=== PATIENT | male | born 1970 | race Caucasian/White ===

== ENCOUNTER 2020-08-01 22:47 | Inpatient (IN) | payer BC ==
[2020-08-01] MEDS ORDERED: ONDANSETRON 4 MG/2 ML VIAL IVP STA (23:14)
[2020-08-01] MEDS ORDERED: HYDROmorphone 0.5 MG/0.5 ML SYRINGE IVP STA (23:14)
[2020-08-01] MEDS ORDERED: SODIUM CHLORIDE 0.9% 1,000 ML IV STA (23:14)
[2020-08-01 23:46] LABS: Basophils # (A) 0.1 k/uL (0-0.2); Basophils % (A) 1 %; Eosinophils # (A) 0.1 k/uL (0-0.7); Eosinophils % (A) 1 %; HGB 17.7 gm/dL (13.0-17.5); Lymphocytes # (A) 1.3 k/uL (1.0-4.8); Lymphocytes % (A) 14 %; MCH 29.3 pg (25.0-35.0); MCHC 32.8 g/dL (31.0-37.0); MCV 89.4 fL (80.0-100.0); Mean Platelet Volume 7.4; Monocytes # (A) 0.4 k/uL (0-1.0); Monocytes % (A) 5 %; Neutrophils % (A) 78 %; Platelet Count 188 k/uL (150-450); RBC 6.04 m/uL (4.30-5.90); RDW 13.5 % (11.5-15.5)
[2020-08-01 23:53] LABS: ALT 34 U/L (4-49); AST 44 U/L (17-59); African American GFR (CKD) >90 (>60 ml/min/1.73 sqM); Alkaline Phosphatase 66 U/L (38-126); Amylase 100 U/L (30-110); Anion Gap 9 mmol/L; Blood Urea Nitrogen 24 mg/dL (9-20); Calcium 9.8 mg/dL (8.4-10.2); Carbon Dioxide 29 mmol/L (22-30); Chloride 99 mmol/L (98-107); Glucose 139 mg/dL (74-99); Non-African American GFR(CKD) 79 (>60 ml/min/1.73 sqM); Potassium 4.2 mmol/L (3.5-5.1); Sodium 137 mmol/L (137-145); Total Bilirubin 1.2 mg/dL (0.2-1.3)
[2020-08-02] MEDS ORDERED: HYDROmorphone 0.5 MG/0.5 ML SYRINGE IVP STA (00:02)
[2020-08-02] MEDS ORDERED: FAMOTIDINE 20 MG/2 ML VIAL IV STA (00:09)
--- NOTE | 2020-08-02 00:11 | CT ---
EXAMINATION TYPE: CT ChestAbdPelvis w con DATE OF EXAM: 08/01/2020 COMPARISON: None HISTORY: pain CT DLP: 1273.9 mGycm Automated exposure control for dose reduction was used. CONTRAST: Performed with IV Contrast, patient injected with 100 mL of Isovue 300. The lungs are clear of infiltrate. There is no evidence of a pulmonary mass. Heart appears enlarged. There is no pericardial effusion. There is no mediastinal adenopathy. There are no hilar masses. Liver shows no focal defect. Gallbladder appears normal. The bile ducts are not dilated. Spleen is in tact. Stomach is intact. There is no pancreatic mass. There is no adrenal mass. Kidneys show satisfactory contrast opacification. There is no hydronephrosi s. There are left-sided renal parapelvic cysts. There are small right-sided renal parapelvic cysts. D elayed images show normal renal excretion. Ureters are not dilated. Bladder distends smoothly. Prosta te measures 5.5 cm. There is no inguinal hernia. There is no free fluid in the pelvis. Appendix is po sterior and medial and appears normal. There is no mesenteric edema. There is no ascites or free air. Small bowel measures up to 2.5 cm with in normal limits. I do not see evidence for bowel obstruction. There are diverticula of the descendin g colon and sigmoid colon. I do not see evidence of diverticulitis. The thoracic spine and lumbar spine are intact. There is no compression fracture. There is spurring i n the lumbar spine. The posterior elements are intact. Bony pelvis is intact. Hip joints appear vashti l. The sternum is intact. There is no evidence of a rib fracture. IMPRESSION: Negative CT scan of the chest. Mild cardiomegaly. Normal appendix. No bowel obstruction. Bilateral small renal parapelvic cysts. No acute abnormality w ithin the abdomen pelvis.
[2020-08-02] MEDS ORDERED: MAG HYDROX/AL HYDROX/SIMETH 30 ML, HYOSCYAMINE ELIXIR 10 ML, LIDOCAINE VISCOUS 2% 10 ML PO STA ×3 (00:13)
--- NOTE | 2020-08-02 00:13 | ED ---
General Adult HPI - General Chief complaint: Abdominal Pain Stated complaint: Abdominal Pain Time Seen by Provider: 08/01/20 23:01 Source: patient, RN notes reviewed Mode of arrival: ambulatory Limitations: no limitations - History of Present Illness Initial comments: 58-year-old male without any significant past medical history presents to the emergency room for a chief complaint of abdominal pain. Patient reports he has a generalized all over abdominal pain. States it is burning in nature. States it is also radiating to his back. He admits to nausea denies vomiting. Denies chest pain. Denies shortness of breath. Denies any history of fevers recently.Patient has no other complaints at this time including shortness of breath, chest pain, nausea or vomiting, headache, or visual changes. - Related Data Home Medications Medication Instructions Recorded Confirmed No Known Home Medications 08/01/20 08/01/20 Allergies Allergy/AdvReac Type Severity Reaction Status Date / Time No Known Allergies Allergy Verified 08/01/20 22:53 Review of Systems ROS Statement: Those systems with pertinent positive or pertinent negative responses have been documented in the HPI. ROS Other: All systems not noted in ROS Statement are negative. Past Medical History Past Medical History: No Reported History History of Any Multi-Drug Resistant Organisms: None Reported Past Surgical History: No Surgical Hx Reported Past Psychological History: No Psychological Hx Reported Smoking Status: Never smoker Past Alcohol Use History: None Reported Past Drug Use History: Marijuana General Exam Limitations: no limitations General appearance: alert, in no apparent distress Head exam: Present: atraumatic, normocephalic, normal inspection Eye exam: Present: normal appearance, PERRL, EOMI. Absent: scleral icterus, c onjunctival injection, periorbital swelling ENT exam: Present: normal exam, mucous membranes moist Neck exam: Present: normal inspection, full ROM. Absent: tenderness, meningismus, lymphadenopathy Respiratory exam: Present: normal lung sounds bilaterally. Absent: respiratory distress, wheezes, rales, rhonchi, stridor Cardiovascular Exam: Present: regular rate, normal rhythm, normal heart sounds. Absent: systolic murmur, diastolic murmur, rubs, gallop, clicks GI/Abdominal exam: Present: soft, tenderness (Generalized abdominal tenderness noted.), normal bowel sounds. Absent: distended, guarding, rebound, rigid Neurological exam: Present: alert Course Vital Signs 08/01/20 08/02/20 22:50 00:41 Temperature 97.9 F Pulse Rate 65 101 H Respiratory 20 19 Rate Blood Pressure 155/65 151/102 O2 Sat by Pulse 99 98 Oximetry EKG Findings - EKG Comments: EKG Findings:: Atrial fibrillation, ventricular rate 115, QRS shinto 108, QTC 478 Medical Decision Making - Medical Decision Making Vitals are stable. HPI and physical exam as documented. Patient is having severe abdominal pain that started 2 hours prior to arrival. On presentation patient was found to be in atrial fibrillation with a ventricular rate of 115. Patient has not had a history of this and is not anticoagulated. CBC did reveal mild hemoconcentration. CMP shows evidence of dehydration. Urinalysis is unremarkable. CT of the chest abdomen and pelvis was negative for acute proces s. There is mild cardiomegaly with bilateral small renal parapelvic cysts. No acute abnormality. At this time given new onset atrial fibrillation patient was given aspirin. We spoke with Dr. Hensley, does not recommend starting anticoagulation at this time.. He will be admitted for cardiology consultation and kept on engine monitor. - Lab Data Result diagrams: 08/01/20 23:34 08/01/20 23:34 Lab Results 08/01/20 08/01/20 08/01/20 Range/Units 23:34 23:34 23:34 WBC 9.0 (3.8-10.6) k/uL RBC 6.04 H (4.30-5.90) m/uL Hgb 17.7 H (13.0-17.5) gm/dL Hct 54.0 H (39.0-53.0) % MCV 89.4 (80.0-100.0) fL MCH 29.3 (25.0-35.0) pg MCHC 32.8 (31.0-37.0) g/dL RDW 13.5 (11.5-15.5) % Plt Count 188 (150-450) k/uL Neutrophils % 78 % Lymphocytes % 14 % Monocytes % 5 % Eosinophils % 1 % Basophils % 1 % Neutrophils # 7.0 (1.3-7.7) k/uL Lymphocytes # 1.3 (1.0-4.8) k/uL Monocytes # 0.4 (0-1.0) k/uL Eosinophils # 0.1 (0-0.7) k/uL Basophils # 0.1 (0-0.2) k/uL PT (9.0-12.0) sec INR (<1.2) APTT (22.0-30.0) sec Sodium 137 (137-145) mmol/L Potassium 4.2 (3.5-5.1) mmol/L Chloride 99 (98-107) mmol/L Carbon Dioxide 29 (22-30) mmol/L Anion Gap 9 mmol/L BUN 24 H (9-20) mg/dL Creatinine 1.09 (0.66-1.25) mg/dL Est GFR (CKD-EPI)AfAm >90 (>60 ml/min/1.73 sqM) Est GFR (CKD-EPI)NonAf 79 (>60 ml/min/1.73 sqM) Glucose 139 H (74-99) mg/dL Plasma Lactic Acid Ab (0.7-2.0) mmol/L Calcium 9.8 (8.4-10.2) mg/dL Total Bilirubin 1.2 (0.2-1.3) mg/dL AST 44 (17-59) U/L ALT 34 (4-49) U/L Alkaline Phosphatase 66 (38-126) U/L Troponin I (0.000-0.034) ng/mL Total Protein 8.0 (6.3-8.2) g/dL Albumin 5.0 (3.5-5.0) g/dL Amylase 100 (30-110) U/L Lipase 308 H (23-300) U/L Urine Color Light Yellow Urine Appearance Clear (Clear) Urine pH 5.5 (5.0-8.0) Ur Specific [place] >1.050 H (1.001-1.035) Urine Protein Negative (Negative) Urine Glucose (UA) Negative (Negative) Urine Ketones Negative (Negative) Urine Blood Negative (Negative) Urine Nitrite Negative (Negative) Urine Bilirubin Negative (Negative) Urine Urobilinogen <2.0 (<2.0) mg/dL Ur Leukocyte Esterase Negative (Negative) 08/01/20 08/01/20 08/01/20 Range/Units 23:34 23:34 23:55 WBC (3.8-10.6) k/uL RBC (4.30-5.90) m/uL Hgb (13.0-17.5) gm/dL Hct (39.0-53.0) % MCV (80.0-100.0) fL MCH (25.0-35.0) pg MCHC (31.0-37.0) g/dL RDW (11.5-15.5) % Plt Count (150-450) k/uL Neutrophils % % Lymphocytes % % Monocytes % % Eosinophils % % Basophils % % Neutrophils # (1.3-7.7) k/uL Lymphocytes # (1.0-4.8) k/uL Monocytes # (0-1.0) k/uL Eosinophils # (0-0.7) k/uL Basophils # (0-0.2) k/uL PT 10.7 (9.0-12.0) sec INR 1.0 (<1.2) APTT 25.0 (22.0-30.0) sec Sodium (137-145) mmol/L Potassium (3.5-5.1) mmol/L Chloride (98-107) mmol/L Carbon Dioxide (22-30) mmol/L Anion Gap mmol/L BUN (9-20) mg/dL Creatinine (0.66-1.25) mg/dL Est GFR (CKD-EPI)AfAm (>60 ml/min/1.73 sqM) Est GFR (CKD-EPI)NonAf (>60 ml/min/1.73 sqM) Glucose (74-99) mg/dL Plasma Lactic Acid Ab 1.3 (0.7-2.0) mmol/L Calcium (8.4-10.2) mg/dL Total Bilirubin (0.2-1.3) mg/dL AST (17-59) U/L ALT (4-49) U/L Alkaline Phosphatase (38-126) U/L Troponin I <0.012 (0.000-0.034) ng/mL Total Protein (6.3-8.2) g/dL Albumin (3.5-5.0) g/dL Amylase (30-110) U/L Lipase (23-300) U/L Urine Color Urine Appearance (Clear) Urine pH (5.0-8.0) Ur Specific [place] (1.001-1.035) Urine Protein (Negative) Urine Glucose (UA) (Negative) Urine Ketones (Negative) Urine Blood (Negative) Urine Nitrite (Negative) Urine Bilirubin (Negative) Urine Urobilinogen (<2.0) mg/dL Ur Leukocyte Esterase (Negative) Disposition Clinical Impression: Abdominal pain, New onset atrial fibrillation Disposition: ADMITTED IP TO THIS HOSP Condition: Fair Instructions (If sedation given, give patient instructions): Abdominal Pain (ED) Is patient prescribed a controlled substance at d/c from ED?: No Referrals: Nonstaff,Physician [REFERRING] - 1-2 days Time of Disposition: 00:52
[2020-08-02 00:24] LABS: Prothrombin Time 10.7 sec (9.0-12.0)
[2020-08-02 00:38] LABS: Appearance,Urine Clear (Clear); Bilirubin,Urine Negative (Negative); Blood,Urine Negative (Negative); Color,Urine Light Yellow; Glucose,Urine (UA) Negative (Negative); Ketones,Urine Negative (Negative); Leukocyte Esterase,Urine Negative (Negative); Nitrite,Urine Negative (Negative); PH, Urine 5.5 (5.0-8.0); Protein,Urine Negative (Negative); Specific Gravity,Urine >1.050 (1.001-1.035); Urobilinogen,Urine <2.0 mg/dL (<2.0)
[2020-08-02] MEDS ORDERED: ASPIRIN 325 MG TAB PO STA (01:02)
[2020-08-02] MEDS ORDERED: cloNIDine HCL 0.2 MG TAB PO STA (01:59)
[2020-08-02] MEDS ORDERED: KETOROLAC 15 MG/ML 1 ML VIAL IVP PRN (02:54)
[2020-08-02] MEDS ORDERED: SODIUM CHLORIDE 0.9% 1,000 ML IV STA (02:56)
--- NOTE | 2020-08-02 03:25 | P.HPIM ---
History of Present Illness H&P Date: 08/02/20 Chief Complaint: abd pain 50 year old male with history of fatty liver. patient comes in with sudden onset right upper quadrant abd pain that started after dinner, where he cooked fish at home, his son shared dinner and feels fine. patient denies any nausea or vomiting, denies any diarrhea or gi bleeding . he denies any trauma , recent travel, or unusual activity. he did mow the lawn today with his ride on neurology nurse. pain started suddenly after 8 pm , rates the pain as 8/10 sharp feels like muscle tearing worse with movement. denies any fever or chills denies any URI. in the ED, blood work over all unremarkable except for polycythemia. CT of the abd unremarkable EKG showed new onset afib/aflutter. patient does feel stressed out, but he is active person and walks alot, denies any limitation to physical activity. he has recently went through divorce. he does report feeling warm typically he would be wearing shorts until late in september, and he sweats a lot, he has recently lost 20 lbs, through dietary changes Review of Systems Pertinent positives as noted in HPI. All other systems were reviewed and are negative Past Medical History Past Medical History: No Reported History History of Any Multi-Drug Resistant Organisms: None Reported Past Surgical History: No Surgical Hx Reported Past Psychological History: No Psychological Hx Reported Smoking Status: Never smoker Past Alcohol Use History: None Reported Past Drug Use History: Marijuana - Past Family History family Family Medical History: No Reported History Medications and Allergies Home Medications Medication Instructions Recorded Confirmed Type No Known Home Medications 08/01/20 08/01/20 History Allergies Allergy/AdvReac Type Severity Reaction Status Date / Time No Known Allergies Allergy Verified 08/01/20 22:53 Physical Exam Vitals: Vital Signs Temp Pulse Resp BP Pulse Ox 08/02/20 02:45 109 H 20 147/100 99 08/02/20 02:00 102 H 20 151/122 99 08/02/20 01:25 93 18 154/114 99 08/02/20 00:41 101 H 19 151/102 98 08/01/20 22:50 97.9 F 65 20 155/65 99 Intake and Output 08/01/20 08/01/20 08/02/20 14:59 22:59 06:59 Other: Weight 95.254 kg Constitutional: No acute distress, conversant, pleasant Eyes: Anicteric sclerae, moist conjunctiva, no lid-lag Pupils equal round reactive to light ENMT: NC/AT Oropharynx clear, no erythema, exudates Neck: Supple, FROM, no masses, or JVD No carotid bruits No thyromegaly Lungs: Clear to auscultation Clear to percussion Normal respiratory effort, no accessory muscle use Cardiovascular: Heart irregular in rate and rhythm, No murmurs, gallops, or rubs No peripheral edema Abdominal: Soft tenderness to superficial palpation over the right upper quadrant of the abd. with voluntary guarding, no rebound or rigidity Abdomen moving with respiration Normoactive bowel sounds No hepatomegaly, No splenomegaly No palpable mass No abdominal wall hernia noted Skin: Normal temperature, tone, texture, turgor No induration No subcutaneous nodules No rash, lesions No ulcers Extremities: No digital cyanosis No clubbing Pedal pulses intact and symmetrical Radial pulses intact and symmetrical No calf tenderness Psychiatric: Alert and oriented to person, place and time Appropriate affect fair judgement Neuro Muscles Strength 5/5 in all 4 extremities Sensation to light touch grossly present throughout Cranial nerves II-XII grossly intact No focal sensory deficits Lymphatics: no palpable cervical or supraclavicular , or inguinal lymph nodes Results CBC & Chem 7: 08/01/20 23:34 08/01/20 23:34 Labs: Abnormal Lab Results - Last 24 Hours (Table) 08/01/20 08/01/20 08/01/20 Range/Units 23:34 23:34 23:34 RBC 6.04 H (4.30-5.90) m/uL Hgb 17.7 H (13.0-17.5) gm/dL Hct 54.0 H (39.0-53.0) % BUN 24 H (9-20) mg/dL Glucose 139 H (74-99) mg/dL Lipase 308 H (23-300) U/L Ur Specific [place] >1.050 H (1.001-1.035) Assessment and Plan Assessment: new onset afib/aflutter CHADSVAC zero start aspirin , no anticoagulation at this time, await cardio input cardiology consult rate control with low dose bb if needed, currently HR <100 echo cardiogram check TSH check K and Mg abd pain , seems musculoskeletal toradol PRN serial abd exam CT abd unremarkable Patient takes supplemental testosterone check D dimer , if elevated then rule out PE with CTA CODE STATUS:full code DVT prophylaxis: heparin sc tid Discussed with: Patient, ER Anticipated length of stay < than [address]: home A total of 65 minutes was spent on the care of this complex patient more than 50% of the time was spent in counseling and care coordination.
[2020-08-02] MEDS ORDERED: METOPROLOL TARTRATE 25 MG TAB PO STA (03:58)
[2020-08-02] MEDS: PANTOPRAZOLE 40 MG TABLET PO SCH ×3 (04:09→17:18)
[2020-08-02] MEDS ORDERED: polyethylene glycoL 3350 17 GM POWD.PACK PO STA (04:22)
[2020-08-02] MEDS ORDERED: MORPHINE SULFATE 4 MG/ML SYRINGE IVP PRN (04:22)
[2020-08-02] MEDS ORDERED: MAGNESIUM HYDROXIDE 2,400 MG/10 ML CUP PO PRN (04:22)
[2020-08-02] MEDS: HEPARIN SODIUM,PORCINE 5,000 UNIT/ML 1 ML VIAL SQ SCH ×3 (10:16→21:52)
[2020-08-02] MEDS: METOPROLOL TARTRATE 25 MG TAB PO SCH ×2 (10:17→21:52)
--- NOTE | 2020-08-02 11:02 | P.CRDCN ---
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 He denies any current history of hypertension although he states in the past he had some high blood pressure, no diabetes, no hyperlipidemia, he is a nonsmoker and does not drink alcohol. He presents to the hospital on this occasion with symptoms of severe abdominal discomfort in his right upper quadrant. According to the patient he had just finished eating dinner when the symptoms started. On presentation here and EKG was performed which revealed atrial fibrillation with moderately rapid ventricular response, for which a cardiology consultation was requested. Patient denies ever being told in the past to have an irregular heartbeat, he does state that he feels occasional palpitations at times when he is walking. He also states that he was told in the past to have a fatty liver, he cut out all carbohydrates, and that seemed to resolve. His EKG on presentation here showed atrial fibrillation with moderately rapid ventricular response. CT of the abdomen and pelvis was performed which was essentially normal. His blood pressure on arrival 147/100 with a heart rate of 108, respirations 18. Blood pressure this morning 135/80 with a heart rate in the 80s, respirations 1896% on room air. AST and ALT were normal lipase was 308, white blood cell count 9.0, hemoglobin 17.7, hematocrit 54, platelet 188, d-dimer 0.38, sodium 137, potassium 4.2, BUN 24, creatinine 1.0. Troponins negative 3, TSH 3.4. Patient was given a dose of metoprolol in the emergency room and started on metoprolol and a half milligrams one tablet by mouth twice a day. Past Medical History Past Medical History: No Reported History History of Any Multi-Drug Resistant Organisms: None Reported Past Surgical History: No Surgical Hx Reported Past Psychological History: No Psychological Hx Reported Smoking Status: Former smoker Past Alcohol Use History: None Reported Past Drug Use History: Marijuana - Past Family History family Family Medical History: No Reported History Medications and Allergies Home Medications Medication Instructions Recorded Confirmed Type Testosterone Cypionate 1 mg IM Q10D 08/02/20 08/02/20 History [Depo-Testosterone] Allergies Allergy/AdvReac Type Severity Reaction Status Date / Time No Known Allergies Allergy Verified 08/02/20 06:39 Physical Exam Vitals: Vital Signs Temp Pulse Pulse Resp BP BP Pulse Ox 08/02/20 09:00 98.0 F 68 16 123/76 97 08/02/20 06:47 97.8 F 80 18 135/85 96 08/02/20 05:56 101 H 20 128/90 98 08/02/20 03:49 105 H 19 154/101 96 08/02/20 03:30 71 18 135/98 97 08/02/20 02:45 109 H 20 147/100 99 08/02/20 02:00 102 H 20 151/122 99 08/02/20 01:25 93 18 154/114 99 08/02/20 00:41 101 H 19 151/102 98 08/01/20 22:50 97.9 F 65 20 155/65 99 Intake and Output 08/01/20 08/02/20 08/02/20 22:59 06:59 14:59 Other: # Voids 1 Weight 95.254 kg 95.254 kg PHYSICAL EXAMINATION: GENERAL: 50-year-old gentleman in no acute distress at the time of my examination HEENT: Head is atraumatic, normocephalic. Pupils equal, round. Sclera anicteric. Conjunctiva are clear. Mucous membranes of the mouth are moist. Neck is supple. There is no elevated jugular venous pressure. No carotid bruit is heard. HEART EXAMINATION: Heart S1, S2 normal. No murmur or gallop heard. CHEST EXAMINATION: Lungs are clear to auscultation and precussion. No chest wall tenderness is noted on palpation or with deep breathing. ABDOMEN: Soft, positive right upper quadrant pain, positive Badillo sign, Bowel sounds are heard. . EXTREMITIES: 2+ peripheral pulses with no evidence of peripheral edema and no calf tenderness noted. NEUROLOGIC patient is awake, alert and oriented 3 . . Results 08/01/20 23:34 08/01/20 23:34 Cardiac Enzymes 08/01/20 08/01/20 08/02/20 Range/Units 23:34 23:34 04:09 AST 44 (17-59) U/L Troponin I <0.012 <0.012 (0.000-0.034) ng/mL 08/02/20 Range/Units 06:33 AST (17-59) U/L Troponin I <0.012 (0.000-0.034) ng/mL Coagulation 08/01/20 Range/Units 23:55 PT 10.7 (9.0-12.0) sec APTT 25.0 (22.0-30.0) sec CBC 08/01/20 Range/Units 23:34 WBC 9.0 (3.8-10.6) k/uL RBC 6.04 H (4.30-5.90) m/uL Hgb 17.7 H (13.0-17.5) gm/dL Hct 54.0 H (39.0-53.0) % Plt Count 188 (150-450) k/uL Comprehensive Metabolic Panel 08/01/20 Range/Units 23:34 Sodium 137 (137-145) mmol/L Potassium 4.2 (3.5-5.1) mmol/L Chloride 99 (98-107) mmol/L Carbon Dioxide 29 (22-30) mmol/L BUN 24 H (9-20) mg/dL Creatinine 1.09 (0.66-1.25) mg/dL Glucose 139 H (74-99) mg/dL Calcium 9.8 (8.4-10.2) mg/dL AST 44 (17-59) U/L ALT 34 (4-49) U/L Alkaline Phosphatase 66 (38-126) U/L Total Protein 8.0 (6.3-8.2) g/dL Albumin 5.0 (3.5-5.0) g/dL Current Medications Generic Name Dose Route Start Last Admin Trade Name Freq PRN Reason Stop Dose Admin Heparin Sodium (Porcine) 5,000 unit 08/02/20 09:00 08/02/20 10:16 Heparin Sodium,Porcine 5,000 Unit/Ml 1 Ml Vial SQ 5,000 unit TID VENUS Administration Ketorolac Tromethamine 15 mg 08/02/20 02:54 Ketorolac 15 Mg/Ml 1 Ml Vial IVP 08/05/20 02:54 Q6HR PRN Pain Magnesium Hydroxide 2,400 mg 08/02/20 04:22 08/02/20 04:36 Magnesium Hydroxide 2,400 Mg/10 Ml Cup PO 2,400 mg ONCE PRN Administration Constipation Metoprolol Tartrate 12.5 mg 08/02/20 09:00 08/02/20 10:17 Metoprolol Tartrate 25 Mg Tab PO 12.5 mg BID VENUS Administration Morphine Sulfate 4 mg 08/02/20 04:22 Morphine Sulfate 4 Mg/Ml Syringe IVP Q4HR PRN Pain Pantoprazole Sodium 40 mg 08/02/20 02:55 08/02/20 07:04 Pantoprazole 40 Mg Tablet PO 40 mg AC-BID VENUS Administration Intake and Output 08/01/20 08/02/20 08/02/20 22:59 06:59 14:59 Other: # Voids 1 Weight 95.254 kg 95.254 kg 08/01/20 23:34 08/01/20 23:34 EKG Interpretations (text) EKG shows atrial fibrillation with moderately rapid ventricular response Assessment and Plan Plan: Assessment and plan #1 severe right upper quadrant abdominal pain, CAT scan of the abdomen and pelvis, revealed normal appendix. No bowel obstruction. Bilateral small renal parapelvic cysts. No acute abnormality within the abdomen or pelvis. Negative computed tomography scan of the chest. Lipase elevated at 308 #2 atrial fibrillation with moderately rapid ventricular response, appears to be of new onset for the patient, persistent, unsure of duration, patient is fairly asymptomatic #3 hypertension Plan We will obtain an echocardiogram with Doppler study, continue metoprolol 12-1/2 mg one tablet by mouth twice a day. CHADSVASC score of 1 because of his hypertension history, although the patient has not recently required medication for his blood pressure, this makes the patient on low to moderate risk, We will not initiate oral anticoagulation at this time. Although I did have a lengthy discussion with the patient regarding oral anticoagulation as well as its risks and benefits. We will review the patient's echocardiogram with Doppler study. We will also obtain an ultrasound of the gallbladder. Further recommendations to follow. DNP note has been reviewed, I agree with a documented findings and plan of care. Patient was seen and examined.
[2020-08-02 11:33] LABS: African American GFR (CKD) >90 (>60 ml/min/1.73 sqM); Anion Gap 6 mmol/L; Blood Urea Nitrogen 18 mg/dL (9-20); Carbon Dioxide 27 mmol/L (22-30); Chloride 102 mmol/L (98-107); Glucose 128 mg/dL (74-99); Non-African American GFR(CKD) >90 (>60 ml/min/1.73 sqM); Sodium 135 mmol/L (137-145)
--- NOTE | 2020-08-02 11:52 | US ---
EXAMINATION TYPE: US gallbladder DATE OF EXAM: 08/02/2020 COMPARISON: NONE CLINICAL HISTORY: ruq abdominal pain. EXAM MEASUREMENTS: Liver Length: 18.5 cm Gallbladder Wall: 0.7 cm CBD: 0.8 cm Right Kidney: 11.9 x 5.3 x 5.4 cm Pancreas: Tail obscured by overlying bowel gas Liver: uppers limites of normal is size Gallbladder: thickened edematous wall, cholelithiasis Evidence for sonographic Badillo's sign: no CBD: wnl Right Kidney: parapelvic cysts, largest measuring 1.4 x 1.5 x 1.3cm inferior pole right kidney IMPRESSION: 1. Clinical consideration for acute cholecystitis is recommended. 2. Small peripelvic cyst in the inferior pole right kidney
[2020-08-02] MEDS ORDERED: ASPIRIN 325 MG TAB PO SCH (12:00)
--- NOTE | 2020-08-02 13:03 | ECHOF ---
Referral Reason:aflutter/afib MEASUREMENTS -------- HEIGHT: 182.9 cm WEIGHT: 95.3 kg BP: 135/85 RVIDd: 3.7 cm (< 3.3) IVSd: 1.3 cm (0.6 - 1.1) LVIDd: 5.0 cm (3.9 - 5.3) LVPWd: 1.2 cm (0.6 - 1.1) IVSs: 1.5 cm LVIDs: 3.9 cm LVPWs: 1.7 cm LA Diam: 4.8 cm (2.7 - 3.8) LAESV Index (A-L): 42.42 ml/m Ao Diam: 3.5 cm (2.0 - 3.7) AV Cusp: 2.3 cm (1.5 - 2.6) LA Diam: 5.3 cm (2.7 - 3.8) MV EXCURSION: 20.130 mm (> 18.000) MV EF SLOPE: 119 mm/s (70 - 150) EPSS: 0.5 cm FINDINGS -------- The rhythm appears to be atrial flutter. This was a technically good study. The left ventricular size is normal. There is moderate concentric left ventricular hypertrophy. O verall left ventricular systolic function is low-normal with, an EF between 50 - 55 %. The right ventricle is normal in size. The left atrium is moderately dilated. LA is severely dilated >40 ml/m2 The right atrial size is normal. There is mild aortic valve sclerosis. Mild mitral regurgitation is present. Mild tricuspid regurgitation present. Right ventricular systolic pressure is normal at < 35 mmHg. There is no pulmonic regurgitation present. The aortic root size is normal. There is no pericardial effusion. CONCLUSIONS -------- 1. The rhythm appears to be atrial flutter. 2. The left ventricular size is normal. 3. There is moderate concentric left ventricular hypertrophy. 4. Overall left ventricular systolic function is low-normal with, an EF between 50 - 55 %. 5. The right ventricle is normal in size. 6. The left atrium is moderately dilated. 7. LA is severely dilated >40 ml/m2 8. The right atrial size is normal. 9. There is mild aortic valve sclerosis. 10. Mild mitral regurgitation is present. 11. Mild tricuspid regurgitation present. 12. There is no pericardial effusion. MUD MIXER HELPER: Shawna Zuniga RDCS
[2020-08-03 04:08] LABS: Cholesterol 187 mg/dL (<200); HDL Cholesterol 49 mg/dL (40-60)
[2020-08-03 04:25] LABS: LDL Cholesterol,Calculated 115 mg/dL (0-99); Triglycerides 115 mg/dL (<150)
[2020-08-03] MEDS: PANTOPRAZOLE 40 MG TABLET PO SCH ×2 (07:05→17:51)
[2020-08-03] MEDS ORDERED: METOPROLOL TARTRATE 25 MG TAB PO STA (08:55)
[2020-08-03] MEDS ORDERED: METOPROLOL TARTRATE 25 MG TAB PO SCH (09:00)
[2020-08-03] MEDS ORDERED: SODIUM CHLORIDE 0.9% 1,000 ML IV SCH (09:00)
[2020-08-03] MEDS: HEPARIN SODIUM,PORCINE 5,000 UNIT/ML 1 ML VIAL SQ SCH ×3 (09:27→21:37)
--- NOTE | 2020-08-03 09:32 | P.GSCN ---
History of Present Illness Consult date: 08/03/20 Reason for Consult: Acute cholecystitis History of present illness: This a 50-year-old male who's admitted to the hospital for workup of atypical chest pain. Patient's found have acute cholecystitis on gallbladder ultrasound. He's had previous attacks of right upper quadrant pain. Patient describes previous attack of right upper quadrant pain was related to his back several months ago. Patient was told he had biliary colic at that time. Past Medical History Past Medical History: No Reported History History of Any Multi-Drug Resistant Organisms: None Reported Past Surgical History: No Surgical Hx Reported Past Psychological History: No Psychological Hx Reported Smoking Status: Former smoker Past Alcohol Use History: None Reported Past Drug Use History: Marijuana - Past Family History family Family Medical History: No Reported History Medications and Allergies Home Medications Medication Instructions Recorded Confirmed Type Testosterone Cypionate 1 mg IM Q10D 08/02/20 08/02/20 History [Depo-Testosterone] Allergies Allergy/AdvReac Type Severity Reaction Status Date / Time No Known Allergies Allergy Verified 08/02/20 06:39 Surgical - Exam Vital Signs Temp Pulse Resp BP Pulse Ox 97.9 F 65 20 155/65 99 08/01/20 22:50 08/01/20 22:50 08/01/20 22:50 08/01/20 22:50 08/01/20 22:50 - General well developed, well nourished, no distress - Eyes PERRL - ENT normal pinna - Neck no masses - Respiratory normal expansion - Cardiovascular Rhythm: regular - Abdomen Tender right upper quadrant Abdomen: soft Results - Labs 08/01/20 23:34 08/02/20 06:33 Abnormal Lab Results - Last 24 Hours (Table) 08/02/20 08/02/20 Range/Units 06:33 13:47 Sodium 135 L (137-145) mmol/L Glucose 128 H (74-99) mg/dL LDL Cholesterol, Calc 115 H (0-99) mg/dL Diabetes panel 08/02/20 08/02/20 Range/Units 06:33 13:47 Sodium 135 L (137-145) mmol/L Potassium 5.0 (3.5-5.1) mmol/L Chloride 102 (98-107) mmol/L Carbon Dioxide 27 (22-30) mmol/L BUN 18 (9-20) mg/dL Creatinine 0.91 (0.66-1.25) mg/dL Glucose 128 H (74-99) mg/dL Calcium 9.0 (8.4-10.2) mg/dL Triglycerides 115 (<150) mg/dL HDL Cholesterol 49 (40-60) mg/dL Calcium panel 08/02/20 Range/Units 06:33 Calcium 9.0 (8.4-10.2) mg/dL Pituitary panel 08/02/20 Range/Units 06:33 Sodium 135 L (137-145) mmol/L Potassium 5.0 (3.5-5.1) mmol/L Chloride 102 (98-107) mmol/L Carbon Dioxide 27 (22-30) mmol/L BUN 18 (9-20) mg/dL Creatinine 0.91 (0.66-1.25) mg/dL Glucose 128 H (74-99) mg/dL Calcium 9.0 (8.4-10.2) mg/dL Adrenal panel 08/02/20 Range/Units 06:33 Sodium 135 L (137-145) mmol/L Potassium 5.0 (3.5-5.1) mmol/L Chloride 102 (98-107) mmol/L Carbon Dioxide 27 (22-30) mmol/L BUN 18 (9-20) mg/dL Creatinine 0.91 (0.66-1.25) mg/dL Glucose 128 H (74-99) mg/dL Calcium 9.0 (8.4-10.2) mg/dL Assessment and Plan Assessment: Acute cholecystitis. Patient will undergo laparoscopic cholecystectomy today.
--- NOTE | 2020-08-03 10:44 | P.PN ---
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 He denies any current history of hypertension although he states in the past he had some high blood pressure, no diabetes, no hyperlipidemia, he is a nonsmoker and does not drink alcohol. He presents to the hospital on this occasion with symptoms of severe abdominal discomfort in his right upper quadrant. According to the patient he had just finished eating dinner when the symptoms started. On presentation here and EKG was performed which revealed atrial fibrillation with moderately rapid ventricular response, for which a cardiology consultation was requested. Patient denies ever being to ld in the past to have an irregular heartbeat, he does state that he feels occasional palpitations at times when he is walking. He also states that he was told in the past to have a fatty liver, he cut out all carbohydrates, and that seemed to resolve. His EKG on presentation here showed atrial fibrillation with moderately rapid ventricular response. CT of the abdomen and pelvis was performed which was essentially normal. His blood pressure on arrival 147/100 with a heart rate of 108, respirations 18. Blood pressure this morning 135/80 with a heart rate in the 80s, respirations 1896% on room air. AST and ALT were normal lipase was 308, white blood cell count 9.0, hemoglobin 17.7, hematocrit 54, platelet 188, d-dimer 0.38, sodium 137, potassium 4.2, BUN 24, creatinine 1.0. Troponins negative 3, TSH 3.4. Patient was given a dose of metoprolol in the emergency room and started on metoprolol and a half milligrams one tablet by mouth twice a day. 08/03/2020 Patient was seen and examined this morning, continues to be in atrial fibrillation and at times his rate goes up into the 140 range. Ultrasound of the gallbladder was performed yesterday which revealed consideration for acute cholecystitis, small peripelvic cyst noted in the inferior pole of the right kidney. Patient has been seen in consultation by surgery and is scheduled to undergo laparoscopic cholecystectomy today. Patient had an echocardiogram with Doppler study performed which revealed an ejection fraction of 50-55%. Blood pressure 122/80 with a heart rate around 110 this morning 96% on room air. Objective - Vital Signs Vital signs: Vital Signs Temp 98 F 08/03/20 04:10 Pulse 112 H 10/09/20 04:10 Resp 16 08/03/20 04:10 BP 123/80 08/03/20 04:10 Pulse Ox 96 08/03/20 04:10 Intake & Output 08/02/20 08/03/20 08/03/20 18:59 06:59 18:59 Intake Total 2120 Balance 2120 Intake: Intake, IV Titration 1040 Amount Sodium Chloride 0.9% 1, 1040 000 ml @ 130 mls/hr IV . Q7H42M [facility] Rx#:[id number] Oral 1080 Other: Voiding Method Toilet Toilet # Voids 6 1 # Bowel Movements 1 - Exam PHYSICAL EXAMINATION: GENERAL: 50-year-old gentleman in no acute distress at the time of my examination HEENT: Head is atraumatic, normocephalic. Pupils equal, round. Sclera anicteric. Conjunctiva are clear. Mucous membranes of the mouth are moist. Neck is supple. There is no elevated jugular venous pressure. No carotid bruit is heard. HEART EXAMINATION: Heart S1, S2 irregularly irregular . No murmur or gallop heard. CHEST EXAMINATION: Lungs are clear to auscultation and precussion. No chest wall tenderness is noted on palpation or with deep breathing. ABDOMEN: Soft, positive right upper quadrant pain, positive Badillo sign, Bowel sounds are heard. . EXTREMITIES: 2+ peripheral pulses with no evidence of peripheral edema and no calf tenderness noted. NEUROLOGIC patient is awake, alert and oriented 3 . - Labs CBC & Chem 7: 08/01/20 23:34 08/02/20 06:33 Labs: Abnormal Lab Results - Last 24 Hours (Table) 08/02/20 08/02/20 Range/Units 06:33 13:47 Sodium 135 L (137-145) mmol/L Glucose 128 H (74-99) mg/dL LDL Cholesterol, Calc 115 H (0-99) mg/dL Assessment and Plan Plan: Assessment and plan #1 severe right upper quadrant abdominal pain, CAT scan of the abdomen and pelvis, revealed normal appendix. No bowel obstruction. Bilateral small renal parapelvic cysts. No acute abnormality within the abdomen or pelvis. Negative computed tomography scan of the chest. Lipase elevated at 308. Ultrasound of the gallbladder revealed consideration for acute cholecystitis #2 atrial fibrillation with moderately rapid ventricular response, appears to be of new onset for the patient, persistent, unsure of duration, patient is fairly asymptomatic #3 hypertension Plan Echocardiogram with Doppler study revealed a normal left ventricular systolic function. We will increase the dose of beta terrell today. Patient is scheduled today to undergo laparoscopic cholecystectomy, we will continue to follow. DNP note has been reviewed, I agree with a documented findings and plan of care. Patient was seen and examined.
[2020-08-03] MEDS ORDERED: IV FLUID CONTINUATION 800 ML IV ONE (13:17)
[2020-08-03] MEDS ORDERED: ONDANSETRON 4 MG/2 ML VIAL ONE (13:30)
[2020-08-03] MEDS ORDERED: ONDANSETRON 4 MG/2 ML VIAL IVP ONE (13:31)
[2020-08-03] MEDS ORDERED: PHENYLEPHRINE-0.9% NACL SYG 1 MG/10 ML SYRINGE ONE (13:33)
[2020-08-03] MEDS ORDERED: fentaNYL (PF) 50 MCG/ML 2 ML AMP ONE (13:33)
[2020-08-03] MEDS ORDERED: HEPARIN SODIUM,PORCINE 5,000 UNIT/ML 1 ML VIAL ONE (13:33)
[2020-08-03] MEDS ORDERED: SUCCINYLCHOLINE CHLORIDE 100 MG/5 ML SYR IV ONE (13:33)
[2020-08-03] MEDS ORDERED: MIDAZOLAM 2 MG/2 ML VIAL ONE (13:33)
[2020-08-03] MEDS ORDERED: DEXAMETHASONE SOD PHOSPHATE 10 MG/ML 1 ML VIAL IV ONE (13:33)
[2020-08-03] MEDS ORDERED: LIDOCAINE 1% INJ 10MG/ML (20 ML MDV) ONE (13:33)
[2020-08-03] MEDS ORDERED: ROCURONIUM 10 MG/ML (10 ML VIAL) IV ONE (13:33)
[2020-08-03] MEDS ORDERED: NEOSTIGMINE 1 MG/ML 10 ML VIAL ONE (13:33)
[2020-08-03] MEDS ORDERED: GLYCOPYRROLATE 0.2 MG/ML 2 ML VIAL ONE (13:33)
[2020-08-03] MEDS ORDERED: ESMOLOL 100 MG/10 ML VIAL ONE (13:33)
[2020-08-03] MEDS ORDERED: PROPOFOL 10 MG/ML 20 ML VIAL IV ONE (13:33)
[2020-08-03] MEDS ORDERED: ceFAZolin 1,000 MG VIAL IVPB ONE (13:55)
[2020-08-03] MEDS ORDERED: LIDOCAINE 1%-EPI 1:100,000 20 ML VIAL SQ ONE (13:58)
[2020-08-03] MEDS ORDERED: LACTATED RINGERS 1,000 ML IV ONE (14:16)
--- NOTE | 2020-08-03 14:21 | P.OP ---
Date of Procedure: 08/03/20 Preoperative Diagnosis: Acute cholecystitis Postoperative Diagnosis: Acute gangrenous cholecystitis Procedure(s) Performed: Laparoscopic cholecystectomy Anesthesia: DEE Surgeon: Abraham Blanco Estimated Blood Loss (ml): 30 Pathology: other (Gallbladder) Condition: stable Disposition: PACU Description of Procedure: The patient was placed on the operating table. The patient received a general endotracheal tube anesthesia. The patients abdomen was prepped and draped in the usual sterile fashion. Through an infraumbilical stab incision, the fascia of the anterior abdominal wall was grasped with a pair of Kochers and then the Veress needle was placed in the peritoneal cavity. Position of the Veress needle was confirmed with positive drop test. The abdomen was then insufflated. After adequate insufflation, the 10 mm trocar was placed in the peritoneal cavity. Following this the laparoscope was placed in the peritoneal cavity. The patient was placed in the head-up, right side up position and then a 5 mm trocar was placed in the right lateral and right subcostal position under direct visualization. A 8 mm trocar was placed in the epigastric position. The gallbladder appeared to be inflamed. There is area of patchy necrosis. The gallbladder was grasped in the fundus and infundibulum. Traction on the gallbladder was placed in the lateral and the cephalad positions. The triangle of Calot was visualized.. The cystic duct was bluntly dissected until the union of the cystic duct and common bile duct was seen. A critical view of safety was achieved. The cystic duct was then divided and sealed with the Harmonic scissors. A PDS Endoloop was then placed throughout the cystic duct stump. The cystic artery divided and sealed with the Harmonic scissors. The gallbladder was then removed from the liver bed using Harmonic scissors. The gallbladder was then extracted through the epigastric port site. Operative field was checked for any bleeding spots and Harmonic scissors was used to coagulate the liver bed. The abdomen was irrigated. The trocars were removed. The skin was closed using interrupted 3-0 Vicryl suture. Dermabond dressing were applied. The patient tolerated the procedure well.
--- NOTE | 2020-08-03 15:15 | P.PN ---
Subjective Progress Note Date: 08/03/20 Patient is doing well this morning. He denies any palpitation. Heart rate was in the 90s on the monitoring manager. Nursing staff inform you the heart rate went up to 140s and 150s with ambulation. Patient denies any abdominal pain. He appears reluctant to get surgery for his gallbladder. He wanted to talk further to the surgeon. Objective - Vital Signs Vital signs: Vital Signs Temp 97.8 F 08/03/20 14:30 Pulse 109 H 08/03/20 15:00 Resp 16 08/03/20 15:00 BP 118/63 08/03/20 15:00 Pulse Ox 94 L 08/03/20 15:00 Intake & Output 08/02/20 08/03/20 08/03/20 18:59 06:59 18:59 Intake Total 2120 1375 Output Total 30 Balance 2120 1345 Weight 95.254 kg Intake: IV 1000 Intake, IV Titration 1040 375 Amount Sodium Chloride 0.9% 1, 375 000 ml @ 125 mls/hr IV . Q8H [facility] Rx#:[id number] Sodium Chloride 0.9% 1, 1040 000 ml @ 130 mls/hr IV . Q7H42M [facility] Rx#:[id number] Oral 1080 0 Output: Estimated Blood Loss 30 Other: Voiding Method Toilet Toilet Toilet # Voids 6 1 2 # Bowel Movements 1 - Exam General: The patient is awake and alert, in no distress Eye: there is normal conjunctiva bilaterally. Neck: The neck is supple, there is no JVD. Cardiovascular: Normal S1-S2, no S3-S4, no murmurs. Respiratory: Lungs clear to auscultation bilaterally Gastrointestinal: Abdomen is soft, nontender Musculoskeletal: There is no pedal edema. Neurological:. Speech is normal. Skin: Skin is warm and dry - Labs CBC & Chem 7: 08/01/20 23:34 08/02/20 06:33 Labs: Abnormal Lab Results - Last 24 Hours (Table) 08/02/20 Range/Units 13:47 LDL Cholesterol, Calc 115 H (0-99) mg/dL Assessment and Plan Assessment: This is a 50-year-old male that presented to the emergency room with right upper quadrant abdominal pain. Patient was evaluated in the ED and admitted to the hospital for further management of his medical problems noted below. 1. Acute cholecystitis, postoperative day #0 status post laparoscopic cholecystectomy. Postoperative management as directed per surgery. Pain control 2. New onset atrial fibrillation with rapid ventricular response, seen and evaluated by cardiology. Thyroid function tests within normal range. Echocardiogram showed preserved ejection fraction with no significant valvular abnormalities. Anticoagulation discussed with cardiology. CHADS-Vasc2 score of 1. Plan to continue with daily aspirin. Heart rate remained not well controlled. Metoprolol dose increased to 25 mg twice daily. We'll continue monitoring manager. 3. DVT prophylaxis with subcu heparin, GI prophylaxis with protonix
[2020-08-03] MEDS ORDERED: METOPROLOL TARTRATE 50 MG TAB PO STA (18:25)
[2020-08-03] MEDS: METOPROLOL TARTRATE 50 MG TAB PO SCH (21:37)
[2020-08-04] MEDS: PANTOPRAZOLE 40 MG TABLET PO SCH ×2 (06:19→17:40)
[2020-08-04] MEDS: ASPIRIN 81 MG PO SCH (09:08)
[2020-08-04] MEDS: HEPARIN SODIUM,PORCINE 5,000 UNIT/ML 1 ML VIAL SQ SCH ×3 (09:08→21:37)
[2020-08-04] MEDS: METOPROLOL TARTRATE 50 MG TAB PO SCH ×3 (09:08→21:36)
[2020-08-04 09:29] LABS: Basophils # (A) 0.1 k/uL (0-0.2); Basophils % (A) 0 %; Eosinophils % (A) 0 %; HCT 51.6 % (39.0-53.0); HGB 17.1 gm/dL (13.0-17.5); Lymphocytes # (A) 1.4 k/uL (1.0-4.8); Lymphocytes % (A) 11 %; MCH 30.9 pg (25.0-35.0); MCHC 33.2 g/dL (31.0-37.0); Monocytes # (A) 0.8 k/uL (0-1.0); Monocytes % (A) 6 %; Neutrophils # (A) 10.5 k/uL (1.3-7.7); Neutrophils % (A) 81 %; Platelet Count 174 k/uL (150-450); RBC 5.55 m/uL (4.30-5.90); RDW 13.2 % (11.5-15.5); WBC 12.9 k/uL (3.8-10.6)
[2020-08-04 09:36] LABS: African American GFR (CKD) >90 (>60 ml/min/1.73 sqM); Anion Gap 7 mmol/L; Blood Urea Nitrogen 21 mg/dL (9-20); Calcium 9.4 mg/dL (8.4-10.2); Carbon Dioxide 29 mmol/L (22-30); Chloride 102 mmol/L (98-107); Glucose 117 mg/dL (74-99); Magnesium 2.2 mg/dL (1.6-2.3); Non-African American GFR(CKD) 85 (>60 ml/min/1.73 sqM); Potassium 4.9 mmol/L (3.5-5.1); Sodium 138 mmol/L (137-145)
--- NOTE | 2020-08-04 09:39 | P.PN ---
Subjective Progress Note Date: 08/04/20 Patient heart rate remained not well controlled currently 126 at rest. Metoprolol dose was increased to 50 mg every 8 hours last night. Patient denies any palpitation or heart pounding. He otherwise denies any abdominal pain. These passing gas and actually had a bowel movement this morning. Objective - Vital Signs Vital signs: Vital Signs Temp 98.3 F 08/04/20 08:23 Pulse 74 08/04/20 08:23 Resp 16 08/04/20 08:23 BP 132/92 08/04/20 08:23 Pulse Ox 97 08/04/20 08:23 Intake & Output 08/03/20 08/04/20 08/04/20 18:59 06:59 18:59 Intake Total 1375 Output Total 30 Balance 1345 Weight 95.254 kg Intake: IV 1000 Intake, IV Titration 375 Amount Sodium Chloride 0.9% 1, 375 000 ml @ 125 mls/hr IV . Q8H [facility] Rx#:[id number] Oral 0 Output: Estimated Blood Loss 30 Other: Voiding Method Toilet Toilet # Voids 2 2 - Exam General: The patient is awake and alert, in no distress Eye: there is normal conjunctiva bilaterally. Neck: The neck is supple, there is no JVD. Cardiovascular: Normal S1-S2, no S3-S4, no murmurs. Respiratory: Lungs clear to auscultation bilaterally Gastrointestinal: Abdomen is soft, nontender Musculoskeletal: There is no pedal edema. Neurological:. Speech is normal. Skin: Skin is warm and dry - Labs CBC & Chem 7: 08/04/20 08:27 08/04/20 08:27 Labs: Abnormal Lab Results - Last 24 Hours (Table) 08/04/20 08/04/20 Range/Units 08:27 08:27 WBC 12.9 H (3.8-10.6) k/uL Neutrophils # 10.5 H (1.3-7.7) k/uL BUN 21 H (9-20) mg/dL Glucose 117 H (74-99) mg/dL Assessment and Plan Assessment: This is a 50-year-old male that presented to the emergency room with right upper quadrant abdominal pain. Patient was evaluated in the ED and admitted to the hospital for further management of his medical problems noted below. 1. Acute cholecystitis, postoperative day #1 status post laparoscopic cholecystectomy. Postoperative management as directed per surgery. Pain control 2. New onset atrial fibrillation with rapid ventricular response, seen and evaluated by cardiology. Thyroid function tests within normal range. Echocardiogram showed preserved ejection fraction with no significant valvular abnormalities. Anticoagulation discussed with cardiology. CHADS-Vasc2 score of 1. Plan to continue with daily aspirin. Heart rate remained not well controlled. Metoprolol dose increased to 50 mg 3 times a day. 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 3. DVT prophylaxis with subcu heparin, GI prophylaxis with protonix Patient will remain in the hospital today awaiting cardiology evaluation. Need better heart rate control
--- NOTE | 2020-08-04 13:42 | P.PN ---
Subjective Progress Note Date: 08/04/20 CHIEF COMPLAINT: Acute cholecystitis HISTORY OF PRESENT ILLNESS: The patient is a 50-year-old male status post cholecystectomy, 08/03/2020. His postop day 1. He is passing flatus and having bowel movements. No reports of abdominal pain. He's being managed for atrial fibrillation. His pain is well-controlled. ROS: No reports of nausea and vomiting. No fevers or chills. No new chest pain. No productive sputum PHYSICAL EXAM: VITAL SIGNS: Reviewed CONSTITUTIONAL: Well developed and in no acute distress. EYES: Conjuctivae without sclera icterus. Extraocular movements grossly intact. HEAD, EARS, NOSE, THROAT: Moist buccal mucosa. Head is atraumatic, normocephalic. Hears conversational speech. No nasal drainage. NECK: Supple. No thyroidomegaly. RESPIRATORY: Non-labored respirations and equal bilateral excursions. CARDIOVASCULAR: Regular rate. ABDOMEN: Incisions clean dry and intact. No peritonitis. MUSCULOSKELETAL: No gross deformity of the lower extremities noted. No clu bbing. No cyanosis. SKIN: Good skin turgor. Well perfused. NEUROLOGIC: Cranial nerves II through XII grossly intact. No focal or lateralizing signs. PSYCH: Appropriate affect. Alert and oriented to person, place and time. CLINICAL LABS: White blood cell count, 12.9, elevated. ASSESSMENT: 1. Acute gangrenous cholecystitis PLAN: 1. Diet as tolerated. 2. Recommend holding anticoagulation such as Eliquis at least 72 hours with monitoring of hemoglobin prior to start. Objective - Vital Signs Vital signs: Vital Signs Temp 98.3 F 08/04/20 08:23 Pulse 74 08/04/20 08:23 Resp 16 08/04/20 08:23 BP 132/92 08/04/20 08:23 Pulse Ox 97 08/04/20 08:23 Intake & Output 08/03/20 08/04/20 08/04/20 18:59 06:59 18:59 Intake Total 1375 Output Total 30 Balance 1345 Weight 95.254 kg Intake: IV 1000 Intake, IV Titration 375 Amount Sodium Chloride 0.9% 1, 375 000 ml @ 125 mls/hr IV . Q8H [facility] Rx#:[id number] Oral 0 Output: Estimated Blood Loss 30 Other: Voiding Method Toilet Toilet # Voids 2 2 - Labs CBC & Chem 7: 10/10/20 08:27 08/04/20 08:27 Labs: Abnormal Lab Results - Last 24 Hours (Table) 08/04/20 08/04/20 Range/Units 08:27 08:27 WBC 12.9 H (3.8-10.6) k/uL Neutrophils # 10.5 H (1.3-7.7) k/uL BUN 21 H (9-20) mg/dL Glucose 117 H (74-99) mg/dL Assessment and Plan (1) Cholecystitis with gangrene of gallbladder Current Visit: Yes Status: Acute Code(s): K82.A1 - GANGRENE OF GALLBLADDER IN CHOLECYSTITIS SNOMED Code(s): 796021493 (2) New onset atrial fibrillation Current Visit: Yes Status: Acute Code(s): I48.91 - UNSPECIFIED ATRIAL FIBRILLATION SNOMED Code(s): 25395775
--- NOTE | 2020-08-04 18:00 | P.PN ---
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 He denies any current history of hypertension although he states in the past he had some high blood pressure, no diabetes, no hyperlipidemia, he is a nonsmoker and does not drink alcohol. He presents to the hospital on this occasion with symptoms of severe abdominal discomfort in his right upper quadrant. According to the patient he had just finished eating dinner when the symptoms started. On presentation here and EKG was performed which revealed atrial fibrillation with moderately rapid ventricular response, for which a cardiology consultation was requested. Patient denies ever being told in the past to have an irregular heartbeat, he does state that he feels occasional palpitations at times when he is walking. He also states that he was told in the past to have a fatty liver, he cut out all carbohydrates, and that seemed to resolve. His EKG on presentation here showed atrial fibrillation with moderately rapid ventricular response. CT of the abdomen and pelvis was performed which was essentially normal. His blood pressure on arrival 147/100 w ith a heart rate of 108, respirations 18. Blood pressure this morning 135/80 with a heart rate in the 80s, respirations 1896% on room air. AST and ALT were normal lipase was 308, white blood cell count 9.0, hemoglobin 17.7, hematocrit 54, platelet 188, d-dimer 0.38, sodium 137, potassium 4.2, BUN 24, creatinine 1.0. Troponins negative 3, TSH 3.4. Patient was given a dose of metoprolol in the emergency room and started on metoprolol and a half milligrams one tablet by mouth twice a day. 08/04/2020 Patient underwent successful cholecystectomy. He denies any abdominal pain. He remains in A. fib with heart rates predominantly controlled. Denies any chest pain or shortness breath. Patient admits he is surprised that he has a diagnosis of atrial fibrillation. No history of hypertension, stroke or TIA, congestive heart failure, NV or PAD. PHYSICAL EXAMINATION Blood pressure 136/98 heart rate 79 afebrile and maintaining oxygen saturation on room air. CONSTITUTIONAL: No apparent distress. HEENT: Head is normocephalic. Pupils are equal, round. Sclerae anicteric. Mucous membranes of the mouth are moist. No JVD. No carotid bruit. CHEST EXAMINATION: Lungs are clear to auscultation. No chest wall tenderness is noted on palpation or with deep breathing. HEART EXAMINATION: Irregularly irregular rate and rhythm. S1, S2 heard. No murmurs, gallops or rub. ABDOMEN: Soft, nontender. Positive bowel sounds. EXTREMITIES: 2+ peripheral pulses, no lower extremity edema and no calf tende rness. NEUROLOGIC EXAMINATION: Patient is awake, alert and oriented x3. Assessment #1 Postop day 1 status post cholecystectomy #2 atrial fibrillation with predominantly controlled ventricular response, appears to be of new onset for the patient, persistent, unsure of duration, patient is fairly asymptomatic #3 hypertension Plan Echocardiogram shows ejection fraction 5055% with dilated left atrium. No significant valvular disease. Patient without heart failure symptoms and predominantly controlled. He does have a questionable history of hypertension although has not been on medications recently. CHADSVASC of at most 1 for questionable HTN and monitor off of anticoagulation. Continue with rate control with metoprolol. Patient stable for discharge from a cardiology standpoint. Objective - Vital Signs Vital signs: Vital Signs Temp 98.0 F 08/04/20 14:44 Pulse 79 08/04/20 14:44 Resp 16 08/04/20 14:44 BP 136/98 08/04/20 14:44 Pulse Ox 97 08/04/20 14:44 Intake & Output 08/03/20 08/04/20 08/04/20 18:59 06:59 18:59 Intake Total 1375 720 Output Total 30 Balance 1345 720 Weight 95.254 kg Intake: IV 1000 Intake, IV Titration 375 Amount Sodium Chloride 0.9% 1, 375 000 ml @ 125 mls/hr IV . Q8H [facility] Rx#:[id number] Oral 0 720 Output: Estimated Blood Loss 30 Other: Voiding Method Toilet Toilet # Voids 2 2 3 - Labs CBC & Chem 7: 08/04/20 08:27 08/04/20 08:27 Labs: Abnormal Lab Results - Last 24 Hours (Table) 08/04/20 08/04/20 Range/Units 08:27 08:27 WBC 12.9 H (3.8-10.6) k/uL Neutrophils # 10.5 H (1.3-7.7) k/uL BUN 21 H (9-20) mg/dL Glucose 117 H (74-99) mg/dL
[2020-08-05] MEDS: PANTOPRAZOLE 40 MG TABLET PO SCH (06:36)
[2020-08-05 08:05] VITALS: RESP 18
[2020-08-05 08:20] VITALS: BP 142/90; PULSE 92; TEMP 98.1
[2020-08-05] MEDS: METOPROLOL TARTRATE 50 MG TAB PO SCH (08:37)
[2020-08-05] MEDS: ASPIRIN 81 MG PO SCH (08:37)
[2020-08-05] MEDS: HEPARIN SODIUM,PORCINE 5,000 UNIT/ML 1 ML VIAL SQ SCH (08:37)
--- NOTE | 2020-08-05 09:41 | P.DS ---
Providers Date of admission: 08/04/20 12:47 Expected date of discharge: 08/05/20 Attending physician: Jose Hensley MD Consults: 08/02/20 01:50 Consult Physician Routine Consulting Provider: [facility] Consult Reason/Comments: new onset a fib Do you want consulting provider notified?: Yes 08/02/20 13:33 Consult Physician Routine Consulting Provider: Abraham Blanco Consult Reason/Comments: ? Acute cholecystitis Do you want consulting provider notified?: Yes Primary care physician: [facility] Course: This is a 50-year-old male that presented to the emergency room with right upper quadrant abdominal pain. Patient was evaluated in the ED and admitted to the hospital for further management of his medical problems noted below. 1. Acute cholecystitis, postoperative day #2 status post laparoscopic cholecystectomy. Pain well controlled. Patient is tolerating diet and having bowel movements with no difficulty. 2. New onset atrial fibrillation with rapid ventricular response, seen and evaluated by cardiology. Thyroid function test within normal range. Echocardiogram showed preserved ejection fraction with no significant valvular a bnormalities. Anticoagulation discussed with cardiology. CHADS-Vasc2 score of 1. Plan to continue with daily aspirin. Heart rate better controlled with metoprolol tartrate 100 mg twice daily. Continue to monitor heart rate at home as patient was having rapid ventricular response with activity. Plan to follow- up with cardiology in the office. Patient will be discharged home in a stable condition. For further details about this hospitalization please refer to the electronic chart. Time spent on discharge > 30 minutes including counseling and coordination of Patient Condition at Discharge: Fair Plan - Discharge Summary New Discharge Prescriptions: New Docusate [Colace] 100 mg PO BID #20 capsule Ibuprofen [Motrin] 600 mg PO Q6HR PRN #40 tab PRN Reason: Pain oxyCODONE HCL [OxyIR] 5 mg PO Q4H PRN 3 Days #18 tab PRN Reason: Pain Acetaminophen Tab [Tylenol] 650 mg PO Q6H #30 tab Aspirin 81 mg PO DAILY #30 chew Metoprolol Tartrate [Lopressor] 100 mg PO BID #60 tab Continue Testosterone Cypionate [Depo-Testosterone] 1 mg IM Q10D Discharge Medication List Testosterone Cypionate [Depo-Testosterone] 1 mg IM Q10D 08/02/20 [History] Acetaminophen Tab [Tylenol] 650 mg PO Q6H #30 tab 08/03/20 [Rx] Docusate [Colace] 100 mg PO BID #20 capsule 08/03/20 [Rx] Ibuprofen [Motrin] 600 mg PO Q6HR PRN #40 tab 08/03/20 [Rx] oxyCODONE HCL [OxyIR] 5 mg PO Q4H PRN 3 Days #18 tab 08/03/20 [Rx] Aspirin 81 mg PO DAILY #30 chew 08/05/20 [Rx] Metoprolol Tartrate [Lopressor] 100 mg PO BID #60 tab 08/05/20 [Rx] Follow up Appointment(s)/Referral(s): Abundio Morrell MD [STAFF PHYSICIAN] - 1 Week Nonstaff,Physician [REFERRING] - 1-2 days Abraham Blanco MD [STAFF PHYSICIAN] - 1 Week Patient Instructions/Handouts: Abdominal Pain (ED) Discharge Disposition: HOME SELF-CARE
== END 2020-08-05 10:07 | disposition home or self-care (01) | DRG 988 ==
LOC: EC 22:47 → 3NCARDOBS 08-02 01:34 → OBSVTOIN 08-04 12:47
PROVIDERS: ADMIT Internal Medicine; ATTEND Internal Medicine
PROC: 0FT44ZZ Resection of Gallbladder, Percutaneous Endoscopic Approach (ICD-10-PCS; principal; 2020-08-03 08:30)
DX: I48.19 Other persistent atrial fibrillation (principal); K80.00 Calculus of gallbladder with acute cholecystitis without obstruction; K82.A1 Gangrene of gallbladder in cholecystitis; E86.0 Dehydration; I10 Essential (primary) hypertension; D75.1 Secondary polycythemia; N28.1 Cyst of kidney, acquired; I08.3 Combined rheumatic disorders of mitral, aortic and tricuspid valves; K76.0 Fatty (change of) liver, not elsewhere classified; Z79.899 Other long term (current) drug therapy; Z87.891 Personal history of nicotine dependence
CPT/HCPCS: 36415; 71260; 74177; 76705; 80048; 80053; 80061; 81003; 82150; 83605; 83690; 83735; 84443; 84484; 85025; 85379; 85610; 85730; 88304; 93005; 93306; 96361; 96374; 96375; 96376; 99285